=== PATIENT | female | born 1935 ===

== ENCOUNTER 2023-12-17 13:53 | Outpatient (CLI) | payer MEDICARE, BC ==
[2023-12-17 17:48] LABS: ALBUMIN 4.1 g/dL (3.2-5.5); ALBUMIN/GLOBULIN RATIO 1.9 (1.0-2.2); ALKALINE PHOSPHATASE 33 IU/L (42-121); ALT ALANINE AMINOTRANSFERASE 24 IU/L (10-60); AST ASPARTATE AMINOTRANSFERASE 29 IU/L (10-42); BILIRUBIN,TOTAL 0.9 mg/dL (0.2-1.0); BUN - BLOOD UREA NITROGEN 29 mg/dL (6-20); CALCIUM 9.9 mg/dL (8.5-10.3); CARBON DIOXIDE - CO2 32 mmol/L (21-32); CHLORIDE 99 mmol/L (101-111); CHOLESTEROL 166 mg/dL; CREATININE 1.1 mg/dL (0.6-1.3); GFR - MDRD 47 (>89); GLUCOSE 79 mg/dL (74-104); HDL CHOLESTEROL 83 mg/dL; LDL CHOLESTEROL,CALCULATED 74 mg/dL; LDL/HDL RATIO 0.9 (<4.4); POTASSIUM 3.8 mmol/L (3.5-4.5); SODIUM 137 mmol/L (135-145); TOTAL PROTEIN 6.3 g/dL (6.4-8.9); TRIGLYCERIDES 44 mg/dL; VLDL CHOLESTEROL 9 mg/dL
[2023-12-17 18:00] LABS: CA 125 12.4 U/mL (0.5-35.0)
[2023-12-17 18:03] LABS: THYROID STIMULATING HORMONE 14.56 uIU/mL (0.34-5.60)
[2023-12-17 18:09] LABS: FERRITIN 45.4 ng/mL (11.0-306.8)
[2023-12-17 21:32] LABS: ESTIMATED AVERAGE GLUCOSE 114 mg/dL (70-100); HEMOGLOBIN A1c% 5.6 % (4.27-6.07)
== END 2023-12-17 13:54 | disposition home or self-care (01) ==
LOC: LAB.N 13:53
PROVIDERS: ATTEND Family Medicine
DX: F03.A0 Unspecified dementia, mild, without behavioral disturbance, psychotic disturbance, mood disturbance, and anxiety (principal); Z85.3 Personal history of malignant neoplasm of breast; C56.9 Malignant neoplasm of unspecified ovary; E78.5 Hyperlipidemia, unspecified; I10 Essential (primary) hypertension; R22.0 Localized swelling, mass and lump, head
CPT/HCPCS: 36415; 80053; 80061; 82728; 83036; 83721; 84439; 84443; 86304

== ENCOUNTER 2024-01-21 14:59 | Outpatient (CLI) | payer MEDICARE, BC | END 2024-01-21 15:00 | disposition home or self-care (01) | LOC: DI 14:59 | PROVIDERS: ATTEND Family Medicine | DX: R60.0 Localized edema (principal); I51.7 Cardiomegaly | CPT/HCPCS: 93307 ==

== ENCOUNTER 2024-03-02 14:51 | Outpatient (CLI) | payer MEDICARE, BC ==
[2024-03-02 15:37] LABS: THYROID STIMULATING HORMONE 13.12 uIU/mL (0.34-5.60)
[2024-03-02 16:52] LABS: CALCIUM 9.6 mg/dL (8.5-10.3); CREATININE 0.9 mg/dL (0.6-1.3); POTASSIUM 3.5 mmol/L (3.5-4.5)
== END 2024-03-02 14:52 | disposition home or self-care (01) ==
LOC: LAB 14:51
PROVIDERS: ATTEND Family Medicine
DX: E03.9 Hypothyroidism, unspecified (principal)
CPT/HCPCS: 36415; 80048; 84439; 84443